=== PATIENT | male | born 1975 | race Caucasian/White ===

== ENCOUNTER 2023-11-21 11:23 | Emergency (ER) | payer SELFPAY ==
[2023-11-21 11:24] VITALS: BP 226/200; PULSE 47; RESP 16; TEMP 35.9; O2SAT 100
--- NOTE | 2023-11-21 11:56 | EX.ED.DYSGE1 ---
HPI History of Present Illness Chief Complaint: Abd Pain [facility] PFS Medical History no medical history Home Medications ?Medication ?Instructions ?Recorded ?Last Taken ?Type furosemide 20 mg tablet (Lasix) 20 mg PO DAILY #7 tabs 11/21/23 Unknown Rx Allergy/AdvReac Type Severity Reaction Status Date / Time No Known Allergies Allergy Verified 11/21/23 11:24 Family History no significant family his Surgical History no surgical history Social History Smoking Status: Current some day smoker tobacco type: cigarettes and cigars EXAM Physical Exam Const Vital Signs: 11/21/23 11:24 11/21/23 12:24 11/21/23 14:00 Temperature 96.6 F L Temperature Source Temporal Pulse Rate 47 L 58 L Respiratory Rate 16 11 L Blood Pressure 226/200 H 117/70 109/77 Blood Pressure Mean 208 85 87 Pulse Ox 100 99 Oxygen Delivery Method Room Air Room Air MDM MDM MDM Narrative Medical decision making narrative: HISTORY OF PRESENT ILLNESS: 48-year-old male presents with right rib pain. Pain is worse with a deep breath. Notes has been going on for 2 weeks worse over the last 2 to 3 days. Notes he was in the hospital for similar symptoms in which he underwent CT scan x-rays and echocardiogram but he cannot tell me the results of these test. Denies any chest pain or shortness of breath. The patient denies recent surgery in the last 4 weeks or immobilization in the last 3 days, denies previous diagnosis of DVT or PE, hemoptysis, unilateral leg swelling or malignancy with treatment the last 6 months or palliative. No estrogen use noted. Notes remote history methamphetamine abuse but denies any current methamphetamine abuse or other illicit drug use. Denies prior history of high blood pressure. Denies headache. Denies family or personal history of connective tissue diseases or abdominal aneurysms. REVIEW OF SYSTEMS: Pertinent positives: right-sided rib pain Pertinent negatives: Chest pain, shortness of breath PHYSICAL EXAM: Nursing triage notes reviewed, Vital signs reviewed Constitutional: please see mdm HENT: MMM Eyes: Pupils equal round and reactive to light, Extraocular muscles intact Neck: No stridor, no JVD, full neck ROM Lungs: Clear to auscultation, No wheezing or rales. No increased work of breathing, no conversational dyspnea, no accessory muscle use, no nasal flaring. No respiratory distress noted Heart: Regular rate and rhythm, No murmurs, No rubs and No gallops, 2+ distal pulses (radial, femoral, posterior tibial) in all extremities Abdomen: Soft, there is no tenderness, rigidity, rebound or guarding, no obvious peritoneal signs, no palpable pulsatile abdominal masses, no auscultated abdominal bruit : No CVAT Extremities: No edema Neuro: No focal neurological deficits, cranial nerves II through XII intact, 5/5 strength in all extremities. Intact sensation to light touch in all extremities, 2+ reflexes bilateral patella tendons. Normal gait. No ataxia. Skin: No rash or lesions noted MEDICAL DECISION MAKING: Chief Complaint: Abdominal pain External records reviewed: Reviewed outpatient hospital records: Hospital records mention a Holter monitor but did not mention a diagnosis treatment, labs, images or any physician documentation. Per patient reported a CT scan abdomen pelvis at outside hospital 2 days ago was negative for intra-abdominal pathology Factors affecting care: none Social determinants of health: remote history of methamphetamine abuse History obtained from others: patient's mother Consults: Cardiology (Dr. Beltran) MDM Narrative: Patient was initially hypertensive, bradycardic otherwise afebrile and nontoxic-appearing. He did not appear pale diaphoretic or acutely ill. Patient was placed on monitor immediately. Repeat blood pressure was obtained. IV fluids were given, IV morphine and IV Zofran were given. A broad lab and imaging workup was further obtained. I considered the following differential diagnosis: PE, pneumonia, rib fracture, ACS, arrhythmia, anemia, pancreatitis, pedal biliary obstruction, UTI, drug-induced chest pain, nephrolithiasis ALL IMAGES (IF OBTAINED) HAVE BEEN PERSONALLY REVIEWED AND INTERPRETED BY MYSELF. Urine drug screen positive cannabinoids otherwise negative for methamphetamines PCP or cocaine or other stimulant drug use Urinalysis not evidence of infection BNP elevated consistent with increased ventricular stretch, there is no stigmata of CHF on exam. CT of the chest showed no evidence of heart failure or pulmonary edema. This is likely an incidental finding does not represent an acute pathology. High-sensitivity troponin is negative, no evidence of myocardial ischemia LFTs show no evidence of hepatobiliary pathology. BMP without evidence of significant electrolyte abnormalities, no anion gap, no acute kidney injury. D-dimer elevated consistent with increased clot breakdown given rib pain and recent hospitalization I did obtain a CT of the chest CTA of the chest shows no evidence of pulmonary embolism The synthesis of the patient's history, physical exam, labs images suggest no acute life-limiting etiology. The etiology of his presentation remains unclear but unlikely be life-threatening given stable vital signs, unremarkable labs and images. In terms of heart failure presenting the patient's is suffering from heart failure. He did have a slightly elevated BNP and had some interstitial markings noted on CT scan. He is ambulate without set hypoxia. I consulted cardiology. Cardiology recommended outpatient discharge with oral Lasix. Recommended IV dose of Lasix given here. I prescribed give small 20 mg oral Lasix 7 days and instructed to follow with cardiology (Dr. Larsen) for outpatient evaluation and treatment. Medication for admission at this time the elevated D-dimer is likely a false positive. Told the patient to take Tylenol and ibuprofen as needed. Told patient follow-up with his primary care physician. Give strict return precautions. The patient and/or family, caregivers express understanding. The patient and/or family, caregivers agrees with the plan. Shared decision making: I will have a discussion with the patient and or visitors regarding risk/benefits of further testing or admission. They will be made aware of of the risk/benefits inherent in this decision they will be given the opportunity to voice understanding. Total critical care time today provided was at least 0 minutes. This excludes separately billable procedures. Critical care time (if documented) is secondary to the patient having high probability of clinically significant/life threatening deterioration in the patient's condition which required my urgent intervention. Impression: 1. Right rib pain 2. Elevated D-dimer 3. Glucosuria 4. Increased interstitial markings 5. Elevated BNP Dispo: Discharge This note was generated with [employer] dictation software. It may contain incorrect words, spelling, and punctuation that were not noted in review of the chart prior to signing. Lab Data Labs: Laboratory Results - last 24 hr 11/21/23 11/21/23 11/21/23 11:57 12:35 13:24 D-Dimer Quant (PE/DVT) 0.78 H* Sodium 140 Potassium 3.7 Chloride 108 H Carbon Dioxide 25.0 Anion Gap 7 BUN 14 Creatinine 0.91 Est GFR (MDRD) Af Amer 114 Est GFR (MDRD) Non-Af 94 BUN/Creatinine Ratio 15.3 Glucose 102 Calcium 8.7 Total Bilirubin 0.70 AST 23 ALT 22 Alkaline Phosphatase 92 Troponin I High Sens 9 B-Natriuretic Peptide 209.9 H Total Protein 7.1 Albumin 3.3 Globulin 3.8 Albumin/Globulin Ratio 0.9 Lipase 30 Urine Color Yellow Urine Clarity Clear Urine pH 6.5 Ur Specific [place] 1.015 Urine Protein Negative Urine Glucose (UA) 100 H Urine Ketones 50 H Urine Occult Blood Negative Urine Nitrite Negative Urine Bilirubin Negative Urine Urobilinogen Normal Ur Leukocyte Esterase Negative Urine Opiates Screen NEGATIVE Urine Methadone Screen NEGATIVE Ur Barbiturates Screen NEGATIVE Ur Phencyclidine Scrn NEGATIVE Ur Amphetamines Screen NEGATIVE MDMA (Ecstasy) Screen NEGATIVE U Benzodiazepines Scrn NEGATIVE Urine Cocaine Screen NEGATIVE U Cannabinoids Screen POSITIVE H Ur Drug Screen Comment Radiography Diagnostic Testing: Clinical Impression(s) from Imaging Studies Chest CTA 11/21/23 13:15 IMPRESSION: Mild degree of increased interstitial markings. No evidence of pulmonary embolism. Electronically Signed: Farzad Norwood MD at 14:10 EDT Reading Location ID and State: [facility] / [place] , Service support , Discharge Plan Triage Chief Complaint: Abd Pain ED Provider: Christian Del Toro Dx/Rx/DC Orders Clinical Impression: Pain in rib Instructions: Heart Failure Dc Prescriptions: New furosemide [Lasix] 20 mg tablet 20 mg PO DAILY Qty: 7 0RF Primary Care Provider: Care Physician,No Primary Referrals: Lily Beltran MD [Med Staff - Active Staff] - Activity Restrictions/Additional Instructions: Thank you for trusting us with your care today! There was no clear life-limiting etiology noted on your labs or images. I did notice some increased fluid retention. As such I prescribed a water pill for you to limit this fluid. Please take Tylenol (2 pills, 650 mg), ibuprofen (2 pills, 400 mg) every 6 hours as needed for pain and fever control. Please return to the emergency department if your symptoms change or worsen. Specifically develop chest pain, shortness of breath or if you lose consciousness. If you notice swelling in your legs or if you notice shortness of breath really down flat. Please follow with your Cardiology (Dr. Larsen) for further outpatient evaluation and management. Print Language: Japanese Disposition Disposition: Home, Self Care
--- NOTE | 2023-11-21 12:14 | EKG12_ITS ---
Test Reason : ABD PAIN Blood Pressure : / mmHG Vent. Rate : 058 BPM Atrial Rate : 058 BPM P-R Int : 140 ms QRS Dur : 082 ms QT Int : 462 ms P-R-T Axes : 056 050 058 degrees QTc Int : 453 ms Sinus bradycardia Otherwise normal ECG Confirmed by Manule Badillo ([id number]), proposal editor DIOGENES LARRY ([id number]) on 11/24/2023 2:06:35 PM Referred By: JERAMIE Confirmed By:Manuel Badillo
[2023-11-21 12:24] VITALS: BP 117/70
[2023-11-21] MEDS: Ketorolac 15 MG/ML Vial IV (12:32)
[2023-11-21] MEDS: Ondansetron 4 MG/2 ML Vial IV (12:32)
[2023-11-21] MEDS: 0.9% Normal Saline (1000mL) 1,000 ML 1000 ML IV (12:32)
[2023-11-21 12:48] LABS: BNP,B-Type NATRIURETIC PEPTIDE 209.9 pg/mL (0-100)
[2023-11-21 12:52] LABS: ALB/GLOB Ratio 0.9 RATIO (0.9-2.4); AST(SGOT) 23 U/L (15-37); Alanine Aminotransfer ALT/SGPT 22 U/L (16-61); Albumin, Serum 3.3 g/dL (3.2-5.0); Alkaline Phosphatase 92 U/L (45-117); Anion Gap 7 (5-15); BUN 14 mg/dL (7-18); BUN/Creat Ratio 15.3 RATIO (10-20); Calcium,Total 8.7 mg/dL (8.5-10.1); Chloride 108 mmol/L (98-107); Creatinine, Serum 0.91 mg/dL (0.70-1.30); EST Glomerular Filtration Rate 94 mL/min (>60); Est Glom Filt Rate - Afr Amer 114 mL/min (>60); Globulin 3.8 g/dL (2.2-4.2); Glucose 102 mg/dL (74-106); Lipase 30 U/L (13-75); Potassium 3.7 mmol/L (3.5-5.1); Protein, Total 7.1 g/dL (6.4-8.2); Sodium Level 140 mmol/L (136-145); Troponin-I HS 9 pg/mL (3.0-78.0)
[2023-11-21 13:15] LABS: D-Dimer Quantitative (DVT/PE) 0.78 FEU/ug/m (0.27-0.49)
--- NOTE | 2023-11-21 13:15 | CT_ITS ---
STUDY: CTA CHEST REASON FOR EXAM: Male, 48 years old. CP, elevated D-dimer r/o PE RADIATION DOSAGE (If Supplied By Facility): CTDIvol = ( 12.25 ) mGy, DLP = ( 502.17 ) mGycm TECHNIQUE: The examination was performed with the intravenous administration of 100 ML ISOVUE 370. Post-processing of the angiographic images was performed, with multiplanar reformation and 3D reconstruction. Individualized dose optimization techniques were used for this CT. COMPARISON: None. FINDINGS: Normal enhancement of the main pulmonary artery and right and left pulmonary arteries. Normal enhancement of the bilateral peripheral pulmonary arteries. There is no demonstrated pulmonary embolism. Normal thoracic aorta and visualized great vessels. There is no demonstrated aortic dissection. Sternal cerclage wires are present from a prior sternotomy. There are visualized mediastinal lymph nodes, which are within normal size limits, and with normal morphology. Calcified right hilar lymph nodes. Normal visualized trachea and bronchi. The lungs are well expanded. Mild degree of increased interstitial markings. This may represent a mild degree of scarring. There is evidence of a calcified granuloma in the anterior aspect of the right lower lobe. Normal pleura. Normal chest wall structures. Normal osseous structures. Normal visualized upper abdomen. CT/CTA Chest W/WO Contrast IMPRESSION: Mild degree of increased interstitial markings. No evidence of pulmonary embolism. Electronically Signed: Farzad Norwood MD at 14:10 EDT ,
[2023-11-21 13:33] LABS: Color, Urine Yellow (Yellow); Glucose, Dipstick 100 mg/dl (Normal); Ketone-Dipstick 50 mg/dl (Negative); Leukocyte Esterase-Dipstick Negative /ul (Negative); Nitrite-Dipstick Negative (Negative); Occult Blood-Urine Negative /ul (Negative); Protein-Dipstick Negative (Negative); Specific Gravity, Urine 1.015 (1.002-1.030); Urine Bilirubin Dipstick Negative (Negative); Urine Clarity Clear (Clear); Urine Urobilinogen Normal (Normal); Urine pH 6.5 (5.0 - 8.0)
[2023-11-21 13:46] LABS: Amphetamine Urine VISTA NEGATIVE (<1000 ng/mL); Barbiturate Urine VISTA NEGATIVE (< 200 ng/mL); Benzodiazepine Urine VISTA NEGATIVE (< 200 ng/mL); Cocaine Urine VISTA NEGATIVE (< 300 ng/mL); Ecstacy Urine VISTA NEGATIVE (< 500 ng/mL); Methadone Urine VISTA NEGATIVE (< 300 ng/mL); PCP Urine VISTA NEGATIVE (< 25 ng/mL); THC Urine VISTA POSITIVE (< 50 ng/mL); Vista UDS pH Range 6
[2023-11-21 14:00] VITALS: BP 109/77; PULSE 58; RESP 11; O2SAT 99
[2023-11-21 14:47] VITALS: O2SAT 98
[2023-11-21] MEDS: Furosemide 20 MG/2 ML VIAL IV (15:07)
[2023-11-21 15:19] VITALS: BP 116/73; PULSE 56; RESP 18; TEMP 36.6; O2SAT 97
== END 2023-11-21 15:26 | disposition home or self-care (01) ==
PROVIDERS: Emergency Provider Emergency Medicine; Visit Provider Emergency Medicine
DX: R07.81 Pleurodynia (principal); R79.89 Other specified abnormal findings of blood chemistry; F17.210 Nicotine dependence, cigarettes, uncomplicated; R10.9 Unspecified abdominal pain
CPT/HCPCS: 71275; 80048; 80053; 80307; 81002; 83690; 83880; 84484; 85379; 93005; 96361; 96374; 96375; 99284; Q9967; A4216; J1940; J2405